=== PATIENT | male | born 1960 | race Two or more races ===

== ENCOUNTER 2016-09-12 21:05 | Inpatient (IN) | payer OTHER ==
[2016-09-12 21:54] VITALS: BMI 20.9
--- NOTE | 2016-09-12 22:05 | HP ---
CIWA Score - CIWA Score Nausea/Vomitin Muscle Tremors: 3 Anxiety: 3 Agitation: 3 Paroxysmal Sweats: 2 Orientation: 0-Oriented Tacttile Disturbances: 2-Mild Itch/Numbness/Burn Auditory Disturbances: 2-Mild Harshness/Frighten Visual Disturbances: 2-Mild Sensitivity Headache: 2-Mild CIWA-Ar Total Score: 22 Admission ROS BHS - HPI Chief Complaint: I NEED HELP TO STOP DRINKING ALCOHOL Allergies/Adverse Reactions: Allergies Allergy/AdvReac Type Severity Reaction Status Date / Time No Known Allergies Allergy Verified 09/12/16 22:01 History of Present Illness: THIS 55 YEARS OLD MALE WITH ALCOHOL DEPENDENCE,WITHDRAWAL SYMPTOM,LAST DETOX 2015 AT [facility] HTN NON COMPLIANCE OLD CVA IN 2012 AND 2014 DEPRESSION NICOTINE DEPENDENCE NO SIGNIFICANT PERIOD OF SOBRIETY Exam Limitations: No Limitations - Ebola screening Have you traveled outside of the country in the last 21 days: No (N) Have you had contact with anyone from an Ebola affected area: No Have you been sick,other than usual withdrawal symptoms: No Do you have a fever: No - Review of Systems Constitutional: Loss of Appetite, Malaise, Night Sweats, Changes in sleep, Weakness, Unintentional Wgt. Loss EENT: reports: Nose Congestion Respiratory: reports: No Symptoms reported Cardiac: reports: Palpitations GI: reports: Diarrhea, Nausea, Vomiting, Abdominal cramping : reports: No Symptoms Reported Musculoskeletal: reports: Back Pain, Muscle Pain Integumentary: reports: Dryness Neuro: reports: Headache, Tremors Endocrine: reports: No Symptoms Reported Hematology: reports: No Symptoms Reported Psychiatric: reports: Depressed Patient History - Patient Medical History Hx Anemia: No Hx Asthma: No Hx Chronic Obstructive Pulmonary Disease (COPD): No Hx Cancer: No Hx Cardiac Disorders: No Hx Congestive Heart Failure: No Hx Hypertension: Yes (NON COMPLIABCE) Hx Hypercholesterolemia: No Hx Pacemaker: No HX Cerebrovascular Accident: Yes (OLD CVA IN 2012 1ND 2014 ADMITTED AT [facility]) Hx Seizures: No Hx Dementia: No Hx Diabetes: No Hx Gastrointestinal Disorders: No Hx Liver Disease: No Hx Genitourinary Disorders: No Hx Sexually Transmitted Disorders: No Hx Renal Disease (ESRD): No Hx Thyroid Disease: No Hx Human Immunodeficiency Virus (HIV): No (2015 NEGATIVE) Hx Hepatitis C: No Hx Depression: Yes (NO MED) Hx Suicide Attempt: No Hx Bipolar Disorder: No Hx Schizophrenia: No Other Medical History: NO SUICIDAL,NO HOMICIDAL - Patient Surgical History Past Surgical History: No - PPD History Previous Implant?: Yes Documented Results: Negative w/o proof Implanted On Prior R Admission?: No PPD to be Administered?: Yes - Smoking Cessation Smoking history: Current every day smoker Have you smoked in the past 12 months: Yes Aproximately how many cigarettes per day: 10 Hx Chewing Tobacco Use: No Initiated information on smoking cessation: Yes 'Breaking Loose' booklet given: 09/12/16 - Substance & Tx. History Hx Alcohol Use: Yes Hx Substance Use: No Substance Use Type: Alcohol Hx Substance Use Treatment: Yes (2015) - Substances Abused Alcohol Route: Oral Frequency: Daily Amount used: 20 OF 12 OZS OF BEER Age of first use: 15 Date of Last Use: 09/12/16 Family Disease History - Family Disease History Family Disease History: Other: Father (ALCOHOL,) Admission Physical Exam [facility] - Vital Signs Vital Signs: Vital Signs - 24 hr 09/12/16 21:52 Temperature 96.9 F L Pulse Rate 93 H Respiratory 20 Rate Blood Pressure 142/85 - Physical General Appearance: Yes: Moderate Distress, Tremorous, Irritable, Sweating, Anxious HEENTM: Yes: Nasal Congestion Respiratory: Yes: Lungs Clear Neck: Yes: Within Normal Limits Breast: Yes: Within Normal Limits Cardiology: Yes: Within Normal Limits, Regular Rate, S1, S2 Abdominal: Yes: Normal Bowel Sounds, Non Tender, Soft Genitourinary: Yes: Within Normal Limits Musculoskeletal: Yes: Back pain, Muscle Pain Extremities: Yes: Tremors Neurological: Yes: Within Normal Limits, geospatial developer II-XII NML intact, Fully Oriented, Alert, Motor Strength 5/5 Integumentary: Yes: Dry Lymphatic: Yes: Within Normal Limits - Diagnostic (1) Alcohol dependence with uncomplicated withdrawal Current Visit: Yes Status: Acute (2) Essential hypertension Current Visit: Yes Status: Acute (3) Old cerebrovascular accident (CVA) without late effect Current Visit: Yes Status: Acute (4) Nicotine dependence Current Visit: Yes Status: Acute (5) Weight loss Current Visit: Yes Status: Acute (6) Low back pain Current Visit: Yes Status: Acute (7) Depression Current Visit: Yes Status: Acute Cleared for Admission [facility] - Detox or Rehab [facility] Level of Care: Medically Managed Detox Regimen/Protocol: Librium S Breath Alcohol Content Breath Alcohol Content: 0.086 Urine Drug Screen - Results Drug Screen Negative: Yes
[2016-09-12] MEDS ORDERED: hydrOXYzine PAMOATE 50 MG CAPSULE (FP) PO PRN (22:12)
[2016-09-12] MEDS ORDERED: MAG HYDROX/AL HYDROX/SIMETH 30 ML UNIT-DOSE CUP PO PRN (22:12)
[2016-09-12] MEDS ORDERED: MAGNESIUM CITRATE 300 ML BOTTLE PO PRN (22:12)
[2016-09-12] MEDS ORDERED: diphenhydrAMINE HCL 50 MG CAPSULE PO PRN (22:12)
[2016-09-12] MEDS ORDERED: MENTHOL/PHENOL 1 EACH UD MM PRN (22:12)
[2016-09-12] MEDS ORDERED: chlordiazePOXIDE HCL 25 MG CAPSULE PO ONE (22:12)
[2016-09-12] MEDS ORDERED: LOPERAMIDE HCL 2 MG CAPSULE PO PRN (22:12)
[2016-09-12] MEDS ORDERED: IBUPROFEN 400 MG TABLET (FP) PO PRN (22:12)
[2016-09-12] MEDS ORDERED: chlordiazePOXIDE HCL 25 MG CAPSULE PO PRN (22:12)
[2016-09-12] MEDS ORDERED: ACETAMINOPHEN 325 MG TABLET (FP) PO PRN (22:12)
[2016-09-12] MEDS ORDERED: MAGNESIUM HYDROX 2400MG/30ML ORAL SUSPENSION 30 ML CUP PO PRN (22:12)
[2016-09-12] MEDS ORDERED: P-EPHED 60MG/TRIPROLIDI 2.5MG TABLET PO PRN (22:12)
[2016-09-12] MEDS ORDERED: guaiFENesin/D-METHORPHAN HB 10 ML UNIT-DOSE CUPS PO PRN (22:12)
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
[2016-09-12 23:12] LABS: URINE APPEARANCE CLEAR; URINE BILIRUBIN NEGATIVE (NEGATIVE); URINE BLOOD NEGATIVE (NEGATIVE); URINE COLOR COLORLESS; URINE GLUCOSE (UA) NEGATIVE (NEGATIVE); URINE KETONE NEGATIVE (NEGATIVE); URINE LEUK ESTERASE NEGATIVE (NEGATIVE); URINE NITRITE NEGATIVE (NEGATIVE); URINE PROTEIN NEGATIVE (NEGATIVE); URINE UROBILINOGEN NEGATIVE E.U./dl (0.2-1.0)
[2016-09-12] MEDS: chlordiazePOXIDE HCL 25 MG CAPSULE PO SCH (23:36)
[2016-09-12] MEDS ORDERED: HYDROCHLOROTHIAZIDE 25 MG TABLET (FP) PO ONE (23:52)
[2016-09-13] MEDS: chlordiazePOXIDE HCL 25 MG CAPSULE PO SCH ×4 (05:41→22:06)
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
[2016-09-13 09:57] LABS: MCH 30.7 pg (25.7-33.7); MCHC 33.3 g/dl (32.0-35.9); MEAN PLT VOLUME 7.2 fl (7.5-11.1); PLATELET COUNT 378 K/MM3 (134-434); RDW 15.1 % (11.9-15.9); WHITE BLOOD COUNT 5.8 K/mm3 (4.0-10.0)
[2016-09-13] MEDS: HYDROCHLOROTHIAZIDE 25 MG TABLET (FP) PO SCH (10:09)
[2016-09-13] MEDS: NICOTINE 21 MG/24 HOURS TOPICAL PATCH TD SCH (10:09)
[2016-09-13] MEDS: PRENATAL VITAMINS W/ FOLIC ACID TABLET (FP) PO SCH (10:09)
--- NOTE | 2016-09-13 10:13 | PN ---
[facility] CIWA - CIWA Score Nausea/Vomitin-No Nausea/No Vomiting Muscle Tremors: 4-Moderate,w/Arms Extend Anxiety: 4-Mod. Anxious/Guarded Agitation: 4-Moderately Restless Paroxysmal Sweats: 1-Minimal Palms Moist Orientation: 0-Oriented Tacttile Disturbances: 3-Moderate Itch/Numb/Burn Auditory Disturbances: 0-None Visual Disturbances: 0-None Headache: 0-None Present CIWA-Ar Total Score: 16 BHS Progress Note (SOAP) Subjective: ANXIETY,SWEATS,TREMORS,BODY ACHES. Objective: 09/13/16 10:12 Vital Signs Temperature 96 F L 09/13/16 09:52 Pulse Rate 90 09/13/16 09:52 Respiratory Rate 20 09/13/16 09:52 Blood Pressure 112/78 09/13/16 09:52 O2 Sat by Pulse Oximetry (%) Laboratory Last Values Urine Color Colorless 09/12/16 23:00 Urine Appearance Clear 09/12/16 23:00 Urine pH 5.0 (5.0-8.0) 09/12/16 23:00 Ur Specific [place] 1.002 (1.001-1.035) 09/12/16 23:00 Urine Protein Negative (NEGATIVE) 09/12/16 23:00 Urine Glucose (UA) Negative (NEGATIVE) 09/12/16 23:00 Urine Ketones Negative (NEGATIVE) 09/12/16 23:00 Urine Blood Negative (NEGATIVE) 09/12/16 23:00 Urine Nitrite Negative (NEGATIVE) 09/12/16 23:00 Urine Bilirubin Negative (NEGATIVE) 09/12/16 23:00 Urine Urobilinogen Negative E.U./dl (0.2-1.0) 09/12/16 23:00 Ur Leukocyte Esterase Negative (NEGATIVE) 09/12/16 23:00 Assessment: 09/13/16 10:12 WITHDRAWAL SX Plan: CONTINUE DETOX FLEXERIL DIRECTED
[2016-09-13 10:27] LABS: ALBUMIN 3.5 g/dl (3.4-5.0); ALK PHOS 96 U/L (45-117); ANION GAP 8 (8-16); BILIRUBIN,TOTAL 0.4 mg/dL (0.2-1.0); CALCIUM 8.9 mg/dL (8.5-10.1); CO2 29 mmol/L (21-32); CREATININE 1.2 mg/dL (0.7-1.3); GLUCOSE,RANDOM 80 mg/dL (74-106); SGOT/AST 15 U/L (15-37); SGPT/ALT 24 U/L (12-78); TOT PROT 6.9 g/dl (6.4-8.2)
[2016-09-13 11:43] LABS: SICKLE CELL SCREEN NEGATIVE (NEGATIVE)
[2016-09-13 11:59] LABS: HIV 1 & 2 AB NEGATIVE; HIV 1 AGp24 NEGATIVE
[2016-09-13] MEDS ORDERED: PNEUMOC 13-VAL CONJ-DIP CRM/PF 0.5 ML DISP.SYRIN IM ONE (12:00)
[2016-09-13] MEDS ORDERED: PNEUMOCOCCAL 23 VACCINE 0.5 ML VIAL IM ONE (12:00)
[2016-09-13] MEDS ORDERED: INFLUENZA VACCINE 45 MCG/0.5 ML (MDV 16-17) IM ONE (12:00)
[2016-09-13] MEDS: CYCLOBENZAPRINE HCL 10 MG TABLET (FP) PO SCH ×2 (15:18→22:06)
--- NOTE | 2016-09-13 15:33 | EKG ---
Test Reason : Blood Pressure : / mmHG Vent. Rate : 081 BPM Atrial Rate : 081 BPM P-R Int : 174 ms QRS Dur : 102 ms QT Int : 358 ms P-R-T Axes : 075 066 072 degrees QTc Int : 415 ms NORMAL SINUS RHYTHM POSSIBLE LEFT ATRIAL ENLARGEMENT LEFT VENTRICULAR HYPERTROPHY ABNORMAL ECG NO PREVIOUS ECGS AVAILABLE Confirmed by LASHELL SMITH, MANASA ([id number]) on 09/13/2016 3:32:59 PM Referred By: Confirmed By:MANASA LOBO MD
[2016-09-13] MEDS ORDERED: ZOLPIDEM TARTRATE 10 MG TABLET (PARK CARE ONLY) PO PRN (22:00)
[2016-09-13] MEDS: THIAMINE HCL 100 MG TABLET (FP) PO SCH (22:06)
[2016-09-14] MEDS: CYCLOBENZAPRINE HCL 10 MG TABLET (FP) PO SCH ×3 (05:43→22:07)
[2016-09-14] MEDS: chlordiazePOXIDE HCL 25 MG CAPSULE PO SCH ×3 (05:43→17:15)
[2016-09-14] MEDS: NICOTINE 21 MG/24 HOURS TOPICAL PATCH TD SCH (10:08)
[2016-09-14] MEDS: PRENATAL VITAMINS W/ FOLIC ACID TABLET (FP) PO SCH (10:08)
[2016-09-14] MEDS: HYDROCHLOROTHIAZIDE 25 MG TABLET (FP) PO SCH (10:08)
--- NOTE | 2016-09-14 11:24 | PN ---
[facility] CIWA - CIWA Score Nausea/Vomitin-No Nausea/No Vomiting Muscle Tremors: 4-Moderate,w/Arms Extend Anxiety: 4-Mod. Anxious/Guarded Agitation: 4-Moderately Restless Paroxysmal Sweats: 1-Minimal Palms Moist Orientation: 0-Oriented Tacttile Disturbances: 3-Moderate Itch/Numb/Burn Auditory Disturbances: 0-None Visual Disturbances: 0-None Headache: 0-None Present CIWA-Ar Total Score: 16 BHS Progress Note (SOAP) Subjective: ANXIETY, SWEATS,TREMORS, FATIGUE. Objective: 09/14/16 11:23 Vital Signs Temperature 96.4 F L 09/14/16 09:36 Pulse Rate 90 09/14/16 09:36 Respiratory Rate 18 09/14/16 09:36 Blood Pressure 111/72 09/14/16 09:36 O2 Sat by Pulse Oximetry (%) Laboratory Last Values WBC 5.8 K/mm3 (4.0-10.0) 09/13/16 07:00 RBC 4.40 M/mm3 (4.00-5.60) 09/13/16 07:00 Hgb 13.5 GM/dL (11.7-16.9) 09/13/16 07:00 Hct 40.5 % (35.4-49) 09/13/16 07:00 MCV 92.0 fl (80-96) 09/13/16 07:00 MCHC 33.3 g/dl (32.0-35.9) 09/13/16 07:00 RDW 15.1 % (11.9-15.9) 09/13/16 07:00 Plt Count 378 K/MM3 (134-434) 09/13/16 07:00 MPV 7.2 fl (7.5-11.1) L 09/13/16 07:00 Sickle Cell Screen Negative (NEGATIVE) 09/13/16 07:00 Sodium 141 mmol/L (136-145) 09/13/16 07:00 Potassium 4.4 mmol/L (3.5-5.1) 09/13/16 07:00 Chloride 104 mmol/L (98-107) 09/13/16 07:00 Carbon Dioxide 29 mmol/L (21-32) 09/13/16 07:00 Anion Gap 8 (8-16) 09/13/16 07:00 BUN 12 mg/dL (7-18) 09/13/16 07:00 Creatinine 1.2 mg/dL (0.7-1.3) 09/13/16 07:00 Creat Clearance w eGFR > 60 (>60) 09/13/16 07:00 Random Glucose 80 mg/dL (74-106) 09/13/16 07:00 Calcium 8.9 mg/dL (8.5-10.1) 09/13/16 07:00 Total Bilirubin 0.4 mg/dL (0.2-1.0) 09/13/16 07:00 AST 15 U/L (15-37) 09/13/16 07:00 ALT 24 U/L (12-78) 09/13/16 07:00 Alkaline Phosphatase 96 U/L (45-117) 09/13/16 07:00 Total Protein 6.9 g/dl (6.4-8.2) 09/13/16 07:00 Albumin 3.5 g/dl (3.4-5.0) 09/13/16 07:00 Urine Color Colorless 09/12/16 23:00 Urine Appearance Clear 09/12/16 23:00 Urine pH 5.0 (5.0-8.0) 09/12/16 23:00 Ur Specific [place] 1.002 (1.001-1.035) 09/12/16 23:00 Urine Protein Negative (NEGATIVE) 09/12/16 23:00 Urine Glucose (UA) Negative (NEGATIVE) 09/12/16 23:00 Urine Ketones Negative (NEGATIVE) 09/12/16 23:00 Urine Blood Negative (NEGATIVE) 09/12/16 23:00 Urine Nitrite Negative (NEGATIVE) 09/12/16 23:00 Urine Bilirubin Negative (NEGATIVE) 09/12/16 23:00 Urine Urobilinogen Negative E.U./dl (0.2-1.0) 09/12/16 23:00 Ur Leukocyte Esterase Negative (NEGATIVE) 09/12/16 23:00 RPR Titer Nonreactive (NONREACTIVE) 09/13/16 07:00 Hepatitis C Antibody <0.1 s/co ratio (0.0-0.9) 09/12/16 07:00 HIV 1&2 Antibody Screen Negative 09/13/16 07:00 HIV P24 Antigen Negative 09/13/16 07:00 Assessment: 09/14/16 11:24 WITHDRAWAL SX Plan: CONTINUE DETOX
[2016-09-14] MEDS: THIAMINE HCL 100 MG TABLET (FP) PO SCH (22:07)
[2016-09-14] MEDS: chlordiazePOXIDE 5 MG CAPSULE PO SCH (22:07)
[2016-09-15] MEDS: chlordiazePOXIDE 5 MG CAPSULE PO SCH ×3 (05:37→18:09)
[2016-09-15] MEDS: CYCLOBENZAPRINE HCL 10 MG TABLET (FP) PO SCH ×3 (05:37→22:37)
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
[2016-09-15] MEDS: HYDROCHLOROTHIAZIDE 25 MG TABLET (FP) PO SCH (10:06)
[2016-09-15] MEDS: PRENATAL VITAMINS W/ FOLIC ACID TABLET (FP) PO SCH (10:06)
[2016-09-15] MEDS: NICOTINE 21 MG/24 HOURS TOPICAL PATCH TD SCH (10:07)
[2016-09-15] MEDS: NAPROXEN 500 MG TABLET (FP) PO SCH ×2 (10:07→22:38)
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
[2016-09-15] MEDS: THIAMINE HCL 100 MG TABLET (FP) PO SCH (22:38)
[2016-09-15] MEDS: chlordiazePOXIDE HCL 10 MG CAPSULE PO SCH (22:38)
[2016-09-16] MEDS: chlordiazePOXIDE HCL 10 MG CAPSULE PO SCH (07:26)
[2016-09-16] MEDS: CYCLOBENZAPRINE HCL 10 MG TABLET (FP) PO SCH (07:28)
[2016-09-16 07:31] VITALS: BP 102/75; PULSE 92; TEMP 97.1
[2016-09-16] MEDS: HYDROCHLOROTHIAZIDE 25 MG TABLET (FP) PO SCH (09:05)
[2016-09-16] MEDS: PRENATAL VITAMINS W/ FOLIC ACID TABLET (FP) PO SCH (09:05)
[2016-09-16] MEDS: NAPROXEN 500 MG TABLET (FP) PO SCH (09:05)
[2016-09-16] MEDS: NICOTINE 21 MG/24 HOURS TOPICAL PATCH TD SCH (09:06)
--- NOTE | 2016-09-16 11:45 | DS ---
[facility] Detox Discharge Summary Admission Date: 09/12/16 Discharge Date: 09/16/16 - History Present History: Alcohol Dependence Additional Comments: DETOX COMPLETED. ALERT O X 3. NAD. TO F/U WITH AFTERCARE REFERRAL PLANNED. Pertinent Past History: S/P CVA HTN CHRONIC LBP WEIGHT LOSS - Physical Exam Results Vital Signs: Vital Signs Temperature 97.1 F L 09/16/16 06:50 Pulse Rate 92 H 09/16/16 06:50 Respiratory Rate 18 09/16/16 06:50 Blood Pressure 102/75 09/16/16 06:50 O2 Sat by Pulse Oximetry (%) Pertinent Admission Physical Exam Findings: WITHDRAWAL SX - Treatment Hospital Course: Detox Protocol Followed, Detoxed Safely, Responded well, Discharged Condition Good - Medication Discharge Medications: Ambulatory Orders NK [No Known Home Medication] 09/12/16 - Diagnosis (1) Alcohol dependence with uncomplicated withdrawal Status: Acute (2) Nicotine dependence Status: Acute Qualifiers: Nicotine product type: cigarettes Substance use status: in withdrawal Qualified Code(s): F17.213 - Nicotine dependence, cigarettes, with withdrawal (3) Weight loss Status: Acute (4) Essential hypertension Status: Chronic (5) Low back pain Status: Chronic Qualifiers: Chronicity: chronic (6) Old cerebrovascular accident (CVA) without late effect Status: Resolved (7) Insomnia Status: Chronic Qualifiers: Insomnia type: unspecified Qualified Code(s): G47.00 - Insomnia, unspecified - AMA Did Patient Leave Against Medical Advice: No
== END 2016-09-16 09:25 | disposition home or self-care (01) | DRG 776 ==
LOC: YASAS 21:05 → Y3N 22:00
PROVIDERS: ADMIT Internal Medicine; ATTEND Internal Medicine
PROC: HZ2ZZZZ Detoxification Services for Substance Abuse Treatment (ICD-10-PCS; principal; 2016-09-16)
DX: F17.213 Nicotine dependence, cigarettes, with withdrawal (principal); F32.9 Major depressive disorder, single episode, unspecified; G47.00 Insomnia, unspecified; I10 Essential (primary) hypertension; M54.5 Low back pain; G89.29 Other chronic pain; Z86.73 Personal history of transient ischemic attack (TIA), and cerebral infarction without residual deficits; R63.4 Abnormal weight loss; Z68.20 Body mass index [BMI] 20.0-20.9, adult
CPT/HCPCS: 36415; 80053; 81003; 85027; 85660; 86593; 87389; 93005; 93010